=== PATIENT | male | born 1980 | race Two or more races ===

== ENCOUNTER 2021-07-04 13:12 | Inpatient (IN) | payer BC ==
[~2021-07-04] VITALS: Ht 180.3 cm; Wt 83.6 kg
[2021-07-04] MEDS ORDERED: GABA-282 PO (13:46)
[2021-07-04] MEDS ORDERED: ADDE30CA3 PO (13:46)
[2021-07-04] MEDS ORDERED: HUMI40KI SC (13:46)
[2021-07-04] MEDS ORDERED: PROTPAK PO (13:46)
[2021-07-04] MEDS ORDERED: PROP1TAB PO (13:46)
[2021-07-04 15:03] LABS: HEMATOCRIT 43.9 % (42.0-52.0); HEMOGLOBIN 14.8 g/dl (13.5-17.5); MEAN CORPUSCULAR HEMOGLOBIN 32.1 pg (27.0-33.0); MEAN CORPUSCULAR HGB CONC 33.7 g/dl (32.0-36.5); MEAN CORPUSCULAR VOLUME 95.2 fl (80.0-96.0); PLATELET COUNT, AUTOMATED 256 10^3/uL (150-450); RED BLOOD COUNT 4.61 10^6/uL (4.30-6.10); WHITE BLOOD COUNT 5.5 10^3/uL (4.0-10.0)
[2021-07-04 15:35] LABS: ALBUMIN 4.5 GM/DL (3.2-5.2); ALT/SGPT 185 U/L (12-78); BILIRUBIN,DIRECT 0.2 MG/DL (0.0-0.2); BILIRUBIN,TOTAL 0.5 MG/DL (0.2-1.0); BLOOD UREA NITROGEN 15 MG/DL (7-18); CALCIUM LEVEL 9.1 MG/DL (8.5-10.1); CARBON DIOXIDE LEVEL 28 MEQ/L (21-32); CHLORIDE LEVEL 103 MEQ/L (98-107); CREATININE FOR GFR 0.98 MG/DL (0.70-1.30); ETHYL ALCOHOL (ETHANOL) 0.093 % (0.000-0.010); GLOMERULAR FILTRATION RATE > 60.0 (>60); GLUCOSE, FASTING 68 MG/DL (70-100); POTASSIUM SERUM 4.6 MEQ/L (3.5-5.1); SALICYLATE LEVEL 2.5 MG/DL (5.0-30.0); SODIUM LEVEL 138 MEQ/L (136-145); THYROID STIMULATING HORMONE 0.645 uIU/ML (0.358-3.740)
[2021-07-04 15:36] LABS: ACETAMINOPHEN LEVEL < 2.0 UG/ML (10.0-30.0)
[2021-07-04 15:46] LABS: AMPHETAMINES LEVEL URINE POSITIVE (NEGATIVE); BARBITURATES URINE NEGATIVE (NEGATIVE); BENZODIAZEPINES URINE NEGATIVE (NEGATIVE); CANNABINOIDS URINE POSITIVE (NEGATIVE); COCAINE METABOLITE URINE NEGATIVE (NEGATIVE); METHADONE URINE NEGATIVE (NEGATIVE); OPIATES URINE NEGATIVE (NEGATIVE); PHENCYCLIDINE URINE NEGATIVE (NEGATIVE)
--- NOTE | 2021-07-04 19:28 | MHIPNPDOC ---
[facility] Progress Note Progress Note DATE OF SERVICE: 07/04/21 Patient presented by PSA, meets criteria for inpatient admission. Today tied garden hose around neck and was interrupted from suicide attempt. Girlfriend concerned for manic and impulsive behavior with is new and concerning, has not been suicidal in the past. Has been trying to cut down unsuccessfully on binge drinking. Vital Signs Vital Signs Date Time Temp Pulse Resp B/P (MAP) Pulse Ox O2 Delivery O2 Flow Rate FiO2 07/04/21 13:37 97.9 91 20 139/89 (106) 98 Room Air Laboratory Data 24H Labs Laboratory Tests 2 07/04/21 14:12: Nucleated Red Blood Cells % (auto) 0.0, Anion Gap 7L, Glomerular Filtration Rate > 60.0, Calcium Level 9.1, Total Bilirubin 0.5, Direct Bilirubin 0.2, Aspartate Amino Transf (AST/SGOT) 38H, Alanine Aminotransferase (ALT/SGPT) 185H, Alkaline Phosphatase 71, Total Protein 8.0, Albumin 4.5, Albumin/Globulin Ratio 1.3, Thyroid Stimulating Hormone (TSH) 0.645, Salicylates Level 2.5L, Urine Opiates Screen NEGATIVE, Urine Methadone Screen NEGATIVE, Acetaminophen Level < 2.0L, Urine Barbiturates Screen NEGATIVE, Urine Phencyclidine Screen NEGATIVE, Urine Amphetamines Screen POSITIVEH, Urine Benzodiazepines Screen NEGATIVE, Urine Cocaine Metabolite Screen NEGATIVE, Urine Cannabinoids Screen POSITIVEH, Ethyl Alcohol Level 0.093H CBC/BMP Laboratory Tests 07/04/21 14:12 Allergies Coded Allergies: No Known Allergies (Unverified , 07/04/21) SHRUTHI DOWNS MD Jul 04, 2021 19:28
[2021-07-04] MEDS ORDERED: PANT-23 PO (20:21)
[2021-07-04] MEDS ORDERED: HOME MED LIST COMPLETE! XX SCH (20:25)
[2021-07-05] MEDS ORDERED: AMPHETAMINE/DEXTROAMPHETAMINE 5 MG *ER* CAPSULE (ADDERALL XR) PO SCH (09:00)
[2021-07-05 10:58] LABS: RSV AMPLIFICATION NEGATIVE (NEGATIVE)
[2021-07-05] MEDS ORDERED: ACETAMINOPHEN TAB 650MG DOSE (2X325MG) PO PRN (15:30)
[2021-07-05] MEDS ORDERED: MOM 30ML SUSPENSION UDC PO PRN (15:30)
[2021-07-05] MEDS ORDERED: traZODone 50 MG TAB PO PRN (15:30)
[2021-07-05] MEDS ORDERED: MAALOX 30 ML SUSP *UDC PO PRN (15:30)
[2021-07-05 15:56] VITALS: BP 134/95
--- OUTSIDE RECORDS SUMMARY | 2021-07-05 15:57 | CCD ---
Author Author [facility] Address Unknown Phone Unavailable Support Name Relationship Address Phone SELF Next Of Kin Unknown Unavailable Re-disclosure Warning The records that you are about to access may contain information from federally-assisted alcohol or drug abuse programs. If such information is present, then the following federally mandated warning applies: This information has been disclosed to you from records protected by federal confidentiality rules (42 CFR part 2). The federal rules prohibit you from making any further disclosure of this information unless further disclosure is expressly permitted by the written consent of the person to whom it pertains or as otherwise permitted by 42 CFR part 2. A general authorization for the release of medical or other information is NOT sufficient for this purpose. The Federal rules restrict any use of the information to criminally investigate or prosecute any alcohol or drug abuse patient.The records that you are about to access may contain highly sensitive health information, the redisclosure of which is protected by Article 27-F of the [facility] Public Health law. If you continue you may have access to information: Regarding HIV / AIDS; Provided by facilities licensed or operated by the [facility] Office of Mental Health; or Provided by the [facility] Office for People With Developmental Disabilities. If such information is present, then the following [facility] mandated warning applies: This information has been disclosed to you from confidential records which are protected by state law. State law prohibits you from making any further disclosure of this information without the specific written consent of the person to whom it pertains, or as otherwise permitted by law. Any unauthorized further disclosure in violation of state law may result in a fine or mcc sentence or both. A general authorization for the release of medical or other information is NOT sufficient authorization for further disc losure. Medications No Information Insurance Providers Payer name Policy type / Coverage type Policy ID Covered green party ID Covered green party's relationship to paz Policy Paz Plan Information BCBS [facility] HMO [id number] SP [id number] [place] [facility] P[place] 302/[id number] SP [id number] [facility] 306/[phone] [id number] SP [id number] Problems, Conditions, and Diagnoses No Information Surgeries/Procedures No Information Results No Information Social History No Information
[2021-07-05] MEDS: PANTOPRAZOLE 40MG TAB (PROTONIX) PO SCH (18:04)
[2021-07-05] MEDS: GABAPENTIN 300 MG CAP PO SCH ×2 (18:04→22:07)
[2021-07-05] MEDS: FINASTERIDE 5 MG TAB PO SCH (18:04)
[2021-07-06 06:40] VITALS: BP 137/84
--- NOTE | 2021-07-06 08:18 | MHHPEPDOC ---
General Date Of Admission: Jul 05, 2021 Legal Status: 9.39 Chief Complaint "It was stupid mistake" History of Present Illness HISTORY OF THE PRESENT ILLNESS: Patient is a 41 -year-old Other, male, who has a past psychiatric history of ADHD. 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 Patient looped a garden hose around his neck and over a beam and was standing on a table in attempt to hang himself, states wouldn't harm himself for buddhism reasons. Patient states "I made a stupid mistake to get her attention". Patient's fiance was present and ex- had to remove from the patient. Police were called. Patient states he has stress because he wants to return to [place] and work on the business as he has concerns of losing money while here in [place], but things have been delayed 2 more days than planned because she wants him to go through his things and he feels they are wasting time. Also reports stressor of her posting revealing pictures online with lizzie commenting, "which is not what a fiance should do", also there have been arguments about past messages on his phone which she has brought to light. States he has also been tired and anxious, family has been supported by him in [facility] which has caused some financial restraints. Reports due to stressor carried out this act to get her attention. has new house, has signed lease on new business location. States "life is good now" and their relationship is on good terms, apart from the stress of the move. Reports mood swings from partner Carolina, and that she has hx of abuse, so he responds to this with frustration at times. Denies SI. [place], manic symptoms or psychotic symptoms. Per collateral from Carolina: "He was just drinking alot, he just kept drinking, didn't say was going to kill self, was putting garden hose around banister, he was hanging, his feet were not on the ground, me and my ex had to get it off his neck. I feel was for attention. I think he is bipolar. He goes to sleep at night, prior to that was drinking alot, he drinks 3-4 out of 7 days, he sneaks, he acts crazy when he drinks, fights alot, 10x worse when not drinking, escalates, anything to him is revealing, he's strict, he doesn't want me going anywhere by myself, he's very controlling, I found alot of things from his past, he worked for [employer], when I ask him about it he says it's dangerous, as if it's a story he made up, has been going on before I met him, but he didn't work there, supposedly told me he worked for [employer], I don't know what to believe, he talks to himself in the shower, saying things that don't make sense. He is not paranoid. There has been infidelities. Half the time I don't know why get into fight. Saw emails where he talked about suicide years ago. I asked family, his ex thought he was bipolar too. No suicide attempts before this. He tries to scare me into doing things, I have to get rid of friends for no reason. He likes delta (concentrated cannabis) , eats like a whole jar of gummies. He needs to see a therapist in [place]. He lies alot. 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,BC (denies self harm, risky behavior to get attention) Past Psychiatric History Previous Psychiatric Diagnosis: ADHD, dx at age 32 Previous Psychiatric Admissions: none Suicide Attempts: none Psychiatric Follow-up: no psychiatrist, meds prescribed by primary Psychiatric medications: Adderall xr 30 mg Past Medical History Medical Problems ana m for psoriasis, "nerve pain", gabapentin, pantoprazole for ulcer Head Injury: No Seizures: No Hospitalizations: No Surgeries: Yes (appendectomy, perforated ulcer repair) Family Medical/Psychiatric HX Medical Problems grandfather lung cancer, psoriasis brother, mother Psychiatric Disorders: No Addiction: No Suicide Attemps/Completions: No Addiction History nicotine ("time to time takes a cigarette from fiance, vape), alcohol (binge drinking, may drink 2 days in a row then stop for a week, in context working 15 hrs per day), other (cannabis 2-3x per week) Social History Childhood: Grew up in [facility], 4 brothers, 4 sisters. Second oldest. Childhood "warm and great", was poor growing up, father always working. 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 Social Support: dennys, sister in [facility] Legal: denies Marital: 5-6 yrs ago, now with dennys Mental Status Examination General Appearance: well groomed Build: average Demeanor: guarded Eye Contact: average Behavior: cooperative, restless Speech: clear, rapid, spontaneous Mood: anxious Affect: anxious Thought Process: circumstantial Thought Content (Delusions): none reported Thought Content (Other): none reported Thought Content (Aggressive): none reported Perception (Hallucinations): none reported Perception (Other): none reported Cognition (Impairment of): none reported Oriented: Awake, Alert, Oriented times three Insight: poor Judgment: Poor Psychosis: Denies Diagnoses Unspecified bipolar disorder versus unspecified psychotic disorder versus acute stress disorder Rule out substance-induced psychotic disorder, substance-induced mood disorder Cannabis use disorder, severe Alcohol use disorder, moderate Tobacco use disorder A-FIB/CHADSVASC A-FIB History Current/History of A-Fib/PAF?: No Current PO Anticoag Therapy: No Age/Risk Factor Scoring CHADSVASC: CHADSVASC Response (Comments) Value Age Risk Factor Age < 65 years old 0 Gender Risk Factor Male 0 Hx of CHF No 0 Hx of HTN No 0 Hx of Stroke/TIA/or VTE No 0 Hx of Diabetes No 0 Hx of Vascular Disease No 0 Total 0 Treatment Treatment ordered: NONE Reason Anticoagulant not given: Not indicated/[id number] Assessment Concern for possible bipolar disorder per her partner, and collateral, patient denies psychiatric symptoms but may be minimizing them, he is agreeable to starting Abilify 5 mg nightly for mood and impulsivity, side effects were discussed with patient including EPS, NMS, metabolic side effects. We'll consider titrating up to 10 mg or greater for bipolar disorder patient is agreeable. Initial Treatment Plan 1. Patient was admitted on a [9.39] status. 2. Complete history was obtained. 3. With patients permission, family will be contacted and database will be expanded. 4. Patients medication regimen will be reviewed and changed accordingly. 5. Patient will be provided with protected environment. 6. Patient will be treated with individual, group, and milieu therapies. 7. Patient will receive supportive psych-education. 8. Discharge planning will commence immediately. 9. Outpatient follow-up treatment will be strongly recommended. 10. The initial treatment plan will focus initially on: * Depression. * Risk for suicide. ESTIMATED LENGTH OF STAY: 2-7 DAYS. TIME SPENT COUNSELING AND COORDINATING INITIAL CARE: 40 minutes. Tobacco Cessation Screen If Patient is a Smoker yes Tobacco Cessation Tx Ordered?: Yes Ordered/Pending Vital Signs Vital Signs Date Time Temp Pulse Resp B/P (MAP) Pulse Ox O2 Delivery O2 Flow Rate FiO2 07/06/21 06:40 99.2 64 18 137/84 (101) 100 Room Air Laboratory Data 24H Labs Laboratory Tests 2 07/05/21 09:50: Coronavirus (COVID-19)(PCR) NEGATIVE, Influenza Type A (RT-PCR) NEGATIVE, Influenza Type B (RT-PCR) NEGATIVE, Respiratory Syncytial Virus (PCR) NEGATIVE Medications Scheduled Adalimumab (Humira) 40 Mg/0.8 Ml Syringekit, 1 SYRINGE SC Q2WK, (Reported) Dextroamphetamine/Amphetamine (Adderall Xr 30 mg Capsule) 30 Mg Cap.er.24h, 1 CAP PO DAILY, (Reported) Finasteride (Propecia) 1 Mg Tablet, 1 TAB PO DAILY, (Reported) Gabapentin (Gabapentin) 300 Mg Capsule, 300 MG PO TID, (Reported) Pantoprazole Sodium (Pantoprazole Sodium) 40 Mg Tablet.dr, 40 MG PO DAILY, (Reported) Allergies Coded Allergies: No Known Allergies (Unverified , 07/04/21) SHRUTHI DOWNS MD Jul 06, 2021 08:17
[2021-07-06] MEDS ORDERED: AMPHETAMINE/DEXTROAMPHETAMINE 5 MG *ER* CAPSULE (ADDERALL XR) PO SCH (09:00)
[2021-07-06] MEDS: PANTOPRAZOLE 40MG TAB (PROTONIX) PO SCH (10:07)
[2021-07-06] MEDS: GABAPENTIN 300 MG CAP PO SCH ×3 (10:07→22:15)
[2021-07-06] MEDS: FINASTERIDE 5 MG TAB PO SCH (10:07)
[2021-07-06] MEDS ORDERED: OLANZapine 5 MG TAB PO PRN (11:10)
[2021-07-06] MEDS ORDERED: LORazepam 2 MG TAB PO PRN (11:10)
[2021-07-06] MEDS: NICOTINE 14 MG/24 HR TRANSDERMAL TD SCH (11:31)
[2021-07-06] MEDS: THIAMINE 100 MG TAB PO SCH ×2 (11:31→22:14)
[2021-07-06] MEDS: MULTIVITAMINS/MINERALS THERAP 1 TAB PO SCH (11:31)
[2021-07-06] MEDS: FOLIC ACID 1 MG TAB PO SCH (11:31)
--- NOTE | 2021-07-06 11:50 | HPEPDOC ---
[facility] Medical History & Physical Date of Admission Jul 05, 2021 Date of Service: Jul 06, 2021 History and Physical Chief complaint: Who presented to [facility] for reported suicidal ideation History of present illness: Patient is a 41-year-old male with no significant past medical history who presented to the emergency room with reported suicidal ideation. Patient was admitted to the inpatient mental health unit under the care of psychiatry. Hospitalist service was consulted for medical screening evaluation. Patient was seen and examined in the exam room. He denied any headache, nausea, vomiting, chest pain, shortness breath, palpitations, cough, pain, diarrhea, constipation, discomfort with urination or any recent fevers or chills. Patient reports that his appetite is fairly normal and denies any changes in his weight. 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 Review of Systems: 10 point review of systems complete, all negative otherwise stated in HPI Physical exam: - Vitals: BP [137/84], HR [64], RR [18], Sat [100%RA], Temp [99.2F] - General: Sitting up in exam chair, Speaking in full sentences, AAOx3 - HEENT: NC, AT, PERRLA - CVS: RRR, +S1S2, - Murmurs / rubs / gallops - Lungs: Fair air entry bilaterally, No appreciable wheezing / rales / rhonchi - Abdomen: Soft, Non-distended, Non-tender - Extremities: No lower extremity edema, No calf tenderness - Neuro: No focal motor or sensory deficit - Skin: No visible rashes Labs: See below Imaging: See below EKG: See below Assessment and Plan: Reported suicidal ideation - Patient currently denies any suicidal thoughts or ideation - Patient has been admitted to inpatient mental health unit under the care of psychiatry - Currently being managed by psychiatry Transaminitis - Will check hepatitis profile No significant past medical history DVT prophylaxis - Will continue with early ablation Vital Signs Vital Signs Date Time Temp Pulse Resp B/P (MAP) Pulse Ox O2 Delivery O2 Flow Rate FiO2 10/20/21 08:59 Room Air 07/06/21 06:40 99.2 64 18 137/84 (101) 100 Home Medications Scheduled Adalimumab (Humira) 40 Mg/0.8 Ml Syringekit, 1 SYRINGE SC Q2WK Dextroamphetamine/Amphetamine (Adderall Xr 30 mg Capsule) 30 Mg Cap.er.24h, 1 CAP PO DAILY Finasteride (Propecia) 1 Mg Tablet, 1 TAB PO DAILY Gabapentin (Gabapentin) 300 Mg Capsule, 300 MG PO TID Pantoprazole Sodium (Pantoprazole Sodium) 40 Mg Tablet.dr, 40 MG PO DAILY Allergies Coded Allergies: No Known Allergies (Unverified , 07/04/21) SHANNON ELLER MD Jul 06, 2021 11:50
[2021-07-06 12:35] VITALS: BP 139/93
[2021-07-06 14:43] LABS: HEPATITIS B CORE ANTIBODY IGM NEGATIVE (NEGATIVE); HEPATITIS B SURFACE ANTIGEN NEGATIVE (NEGATIVE); HEPATITIS C VIRUS ABY INDEX < 0.0 INDEX (<0.8)
[2021-07-06 17:38] VITALS: BP 145/79
[2021-07-07 06:00] VITALS: BP 128/70
[2021-07-07 06:04] VITALS: BP 128/70
[2021-07-07 08:35] LABS: CHOLESTEROL RISK RATIO 3.054 (<5)
[2021-07-07 08:40] VITALS: BP 128/70
[2021-07-07] MEDS: NICOTINE 14 MG/24 HR TRANSDERMAL TD SCH (09:20)
[2021-07-07] MEDS: THIAMINE 100 MG TAB PO SCH (09:21)
[2021-07-07] MEDS: FINASTERIDE 5 MG TAB PO SCH (09:21)
[2021-07-07] MEDS: GABAPENTIN 300 MG CAP PO SCH (09:22)
[2021-07-07] MEDS: FOLIC ACID 1 MG TAB PO SCH (09:22)
[2021-07-07] MEDS: PANTOPRAZOLE 40MG TAB (PROTONIX) PO SCH (09:22)
[2021-07-07] MEDS: MULTIVITAMINS/MINERALS THERAP 1 TAB PO SCH (09:23)
[2021-07-07] MEDS ORDERED: ABIL1TAB11 PO (11:32)
[2021-07-07] MEDS ORDERED: NICO14PA TD (11:32)
--- NOTE | 2021-07-07 12:38 | MHDSPDOC ---
[facility] Discharge Summary Discharge Summary DATE OF ADMISSION: Jul 05, 2021 at 15:29 DATE OF DISCHARGE: Jul 07 2021 Discharge diagnoses: Substance-induced mood disorder Adjustment disorder Cannabis use disorder, severe Alcohol use disorder, moderate Tobacco use disorder Reason for admission:Patient is a 41 -year-old Other, male, who has a past psychiatric history of ADHD. 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 Patient looped a garden hose around his neck and over a beam and was standing on a table in attempt to hang himself, states wouldn't harm himself for gnosticism reasons. Patient states "I made a stupid mistake to get her attention". Patient's fiance was present and ex- had to remove from the patient. Police were called. Patient states he has stress because he wants to return to [place] and work on the business as he has concerns of losing money while here in [place], but things have been delayed 2 more days than planned because she wants him to go through his things and he feels they are wasting time. Also reports stressor of her posting revealing pictures online with mitchsamantha commenting, "which is not what a fiance should do", also there have been arguments about past messages on his phone which she has brought to light. States he has also been tired and anxious, family has been supported by him in [facility] which has caused some financial restraints. Reports due to stressor carried out this act to get her attention. has new house, has signed lease on new business location. States "life is good now" and their relationship is on good terms, a part from the stress of the move. Reports mood swings from partner Carolina, and that she has hx of abuse, so he responds to this with frustration at times. Denies SI. HI, manic symptoms or psychotic symptoms. Per collateral from [place]: "He was just drinking alot, he just kept drinking, didn't say was going to kill self, was putting garden hose around banister, he was hanging, his feet were not on the ground, me and my ex had to get it off his neck. I feel was for attention. I think he is bipolar. He goes to sleep at night, prior to that was drinking alot, he drinks 3-4 out of 7 days, he sneaks, he acts crazy when he drinks, fights alot, 10x worse when not drinking, escalates, anything to him is revealing, he's strict, he doesn't want me going anywhere by myself, he's very controlling, I found alot of things from his past, he worked for [employer], when I ask him about it he says it's dangerous, as if it's a story he made up, has been going on before I met him, but he didn't work there, supposedly told me he worked for [employer], I don't know what to believe, he talks to himself in the shower, saying things that don't make sense. He is not paranoid. There has been infidelities. Half the time I don't know why get into fight. Saw emails where he talked about suicide years ago. I asked family, his ex thought he was bipolar too. No suicide attempts before this. He tries to scare me into doing things, I have to get rid of friends for no reason. He likes delta (concentrated cannabis) , eats like a whole jar of gummies. He needs to see a therapist in [place]. He lies alot. Clearly something wrong." Vital signs: See below Consultants involved: See medical H&P by hospitalist Treatment and progress on the unit: Patient was admitted to the [facility] on a 9.39 legal status and was afforded the following treatment modalities: 1. Individual therapy 2. Group therapy 3. Medication management 4. Milieu therapy 5. Safe environment Hospital course: Patient was admitted to the [facility] on a 9.39 legal status. Was medically cleared prior to coming up to the [facility]. Toxicology is positive for cannabis, amphetamine, BAL of 0.093. Patient denies using any amphetamines, but has been using high concentration THC gummies and was drinking prior to coming in. Both patient and per collateral from [place] patient has been sleeping normally, behavior changes when he drinks, and due to acute stressors has been more impulsive and anxious admission. Patient had planned to move back to [place] in the subsequent days prior to being admitted and had concern of fin ancial constraints as he wanted to return to his business and moved back to [place] to start his life. They were in the area just to sweet pickled fruit maker his partner's things here in [facility]. Patient agreed to start Abilify 5 mg p.o. nightly for impulsivity and mood lability, was well tolerated without side effects, LFTs were elevated on admission so was not started on naltrexone, de spite this was offered the medication patient refused. Patient was educated about alcohol use and risk for suicide, increased impulsivity, deleterious health effects, effects on mood and anxiety, risk for seizures. Further collateral was gathered from partner Carolina who is there time with him wrapping the garden hose and runs neck, reports was unsure if he was truly in danger but at this behavior could have led to a worse outcome. Feels he safe to return home with her and they would drive back. Patient had made some comments about ending the relationship due to being put into the mental health unit, further discussion states that he loves his partner and plans to stay with her and work things out, feels that there would not be any domestic dispute if he returns home and that they would be able to finish the packing and return to [place]. Patient found medications beneficial and tolerated them well. Denies mood anxiety and intrusive thoughts which improved with treatment. Patient attended groups daily during stay. Patient symptoms improved with treatment. On day of discharge patient denied depression, anxiety, insomnia, suicidal or homicidal ideations intent or plan, hallucinations, delusions. Patient was discharged home with follow-up. Patient felt safe for discharge. Was offered continued stay involuntary admission but refused. Discharge assessment: On today's interview patient is alert and oriented, dressed appropriately. Hygiene and grooming is well-kept. Smiles on approach and is pleasant and engaged on interview. Denies depression and anxiety. Denies suicidal homicidal ideation, intent or planning. Denies and is not observed with judy or psychotic symptoms of delusions, hallucinations, bizarre thinking, obsessions, paranoia, ruminations, illogical thoughts, flight of ideas or having poor insight or judgment. Patient has normal mentation, declines further hospitalization of voluntary status and meets criteria for discharge today, patient encouraged to return the hospital if symptoms worsen or change and encouraged to call unit if they feel they need provider's questions to be answered or help with medications or care. States that his behavior was careless in context of drinking and argument and that he never intended to kill himself, would never harm himself, no suicide attempts endorsed for patient or collateral from partner. Patient reports being future oriented to continue taking medication and follow-up with outpatient provider in [place] within 5 days, sent referrals, partner and be on board with safety plan, medications sharps, any kind of ligature risk and alcohol is been removed and she is with ex- and will watch the patient until they leave and goes to appointment. Patient should follow-up with primary doctor to monitor liver function tests. Mental status: General Appearance: well groomed, good eye contact, calm, Build: average Demeanor: pleasant Eye Contact: Good Behavior: cooperative Speech: clear, rapid, spontaneous Mood: " I am fine doc" Affect: Mild anxiety, full, does smile and laugh at points Thought Process: Linear and logical Thought Content (Delusions): none reported Thought Content (Other): none reported Thought Content (Aggressive): none reported Perception (Hallucinations): none reported Perception (Other): none reported Cognition (Impairment of): none reported Oriented: Awake, Alert, Oriented times three Insight: Fair Judgment: Fair, improved Psychosis: Denies Medications on discharge: -see medication reconciliation: CSSRS on discharge: Wish to be : No nonspecific active suicidal thoughts: No lifetime attempts: 0 interrupted attempts: 0 aborted attempts: 0 preparatory acts or behavior: None Taking into consideration safety state, status, modifiable, non-modifiable risk factors patient is at low risk on discharge for suicide according to [facility] suicide evaluation. PLAN/FOLLOWUP ARRANGEMENTS: Follow Up Care Education Label * Mental Health Appt 1 * Mental Health Provider in [place] * Additional information Patient is from [place]. He currently has a scheduled appointment with a psychiatrist and the paperwork is located in his vehicle. TW will contact pt post discharge to get that appointment time and date. Follow Up Care Education Label * Medical * Additional information Patient reports he has an appointment with his PCP in [place] in two months. The amount of time spent in the coordination of care for this patient was approximately 45 minutes. ETOH/Disorder Med Rx ETOH/DRUG DISORDER RX: Offrd @ d/c & pt refused Vital Signs/I&Os Vital Signs Date Time Temp Pulse Resp B/P (MAP) Pulse Ox O2 Delivery O2 Flow Rate FiO2 10/21/21 08:40 71 128/70 07/07/21 06:04 98.0 16 100 Room Air Laboratory Data Labs 24H Laboratory Tests 2 07/06/21 12:41: Hepatitis A IgM Antibody NEGATIVE, Hepatitis B Surface Antigen NEGATIVE, Hepatitis B Core IgM Antibody NEGATIVE, Hepatitis C Antibody Index < 0.0 07/07/21 07:56: Triglycerides Level 60, Total Cholesterol 223H, LDL Cholesterol 138H, Non-HDL Cholesterol (LDL + VLDL) 150, Total HDL Cholesterol 73, Cholesterol/HDL Ratio 3.054 Medications Scheduled Adalimumab (Humira) 40 Mg/0.8 Ml Syringekit, 1 SYRINGE SC Q2WK, (Reported) Aripiprazole (Abilify) 5 Mg Tablet, 5 MG PO QHS for mood, #7 Finasteride (Propecia) 1 Mg Tablet, 1 TAB PO DAILY, (Reported) Gabapentin (Gabapentin) 300 Mg Capsule, 300 MG PO TID, (Reported) Nicotine (Nicotine Patch) 14 Mg Patch.td24, 1 PATCH TD DAILY for nicotine cravings, #7 Pantoprazole Sodium (Pantoprazole Sodium) 40 Mg Tablet.dr, 40 MG PO DAILY, (Reported) Allergies Coded Allergies: No Known Allergies (Unverified , 07/04/21) SHRUTHI DOWNS MD Jul 07, 2021 12:38
== END 2021-07-07 14:44 | disposition home or self-care (01) | DRG 755 ==
LOC: M ED 13:12 → M ED INP 07-05 15:29 → M PSY 07-05 16:15
PROVIDERS: ADMIT Student in an Organized Health Care Education/Training Program; ATTEND Student in an Organized Health Care Education/Training Program
DX: F43.20 Adjustment disorder, unspecified (principal); F29 Unspecified psychosis not due to a substance or known physiological condition; F12.20 Cannabis dependence, uncomplicated; F10.20 Alcohol dependence, uncomplicated; F17.210 Nicotine dependence, cigarettes, uncomplicated; F17.290 Nicotine dependence, other tobacco product, uncomplicated; Z20.822 Contact with and (suspected) exposure to COVID-19; Z79.899 Other long term (current) drug therapy; R74.01 Elevation of levels of liver transaminase levels